=== PATIENT | male | born 1995 | race Two or more races ===

== ENCOUNTER 2023-09-05 08:43 | Day surgery (SDC) | payer OTHER ==
[~2023-09-05] VITALS: Ht 188 cm; Wt 127.0 kg
[2023-09-05] MEDS ORDERED: MORPHINE SULFATE INJ 2 MG/ml SYRG IV PRN (09:45)
[2023-09-05] MEDS ORDERED: HYDROmorphone HCL 2 MG/ML VL/or syr IV PRN ×2 (09:45)
[2023-09-05] MEDS ORDERED: METOCLOPRAMIDE HCL 5MG/ml INJ 2ml VIAL IV PRN (09:45)
[2023-09-05 10:40] VITALS: TEMP 97.2; O2SAT 94
[2023-09-05 11:22] VITALS: BP 131/86; PULSE 99; RESP 12; O2SAT 96
== END 2023-09-05 11:25 | disposition home or self-care (01) ==
LOC: SUR 08:43
PROVIDERS: ATTEND Urology
DX: Z30.2 Encounter for sterilization (principal)
CPT/HCPCS: 88302